=== PATIENT | male | born 1955 | race Hispanic/Latino ===

== ENCOUNTER 2023-01-09 12:02 | Emergency (ER) | payer MEDICARE, OTHER ==
[~2023-01-09] VITALS: Ht 162.6 cm; Wt 99.3 kg
[~2023-01-09 12:02] MED LIST: ATEN50TA PO; ATOR20TA65 PO; GABA-531 PO; HUM100IN SQ; HYDR-2132 PO; HYDR25TA PO; LOSA100T58 PO; RIVA10TA PO
[2023-01-09] MEDS ORDERED: CYCL5TAB PO (19:38)
[2023-01-09 19:57] VITALS: BP 110/66
[2023-01-09] MEDS ORDERED: CYCLOBENZAPRINE HCL 10 MG TABLET PO ONE (20:00)
== END 2023-01-09 20:02 | disposition home or self-care (01) ==
LOC: EDH 12:02
DX: S39.012A Strain of muscle, fascia and tendon of lower back, initial encounter (principal); Z79.899 Other long term (current) drug therapy; Z88.5 Allergy status to narcotic agent; Z88.6 Allergy status to analgesic agent; Z88.8 Allergy status to other drugs, medicaments and biological substances; Z91.040 Latex allergy status; V89.2XXA Person injured in unspecified motor-vehicle accident, traffic, initial encounter; Y93.I9 Activity, other involving external motion; Y92.488 Other paved roadways as the place of occurrence of the external cause; Y99.8 Other external cause status
CPT/HCPCS: 72131